=== PATIENT | female | born 1975 | race Caucasian/White ===

== ENCOUNTER 2017-08-21 16:45 | Emergency (ER) | payer SELFPAY ==
[~2017-08-21] VITALS: Ht 170.2 cm; Wt 62.1 kg
[2017-08-21 16:56] VITALS: Ht 170.2 cm; Wt 62.1 kg
[2017-08-21 19:15] VITALS: BP 128/88
== END 2017-08-21 18:55 | disposition home or self-care (01) ==
LOC: ED 16:45
DX: R51 Headache (principal); R11.0 Nausea; H53.142 Visual discomfort, left eye
CPT/HCPCS: J0780; J1885